=== PATIENT | female | born 2005 | race African-American/Black ===

== ENCOUNTER 2024-11-20 20:41 | Emergency (ER) | payer OTHER ==
[~2024-11-20] VITALS: Ht 165.1 cm; Wt 68.8 kg
[2024-11-20 20:43] VITALS: O2SAT 99
[2024-11-20] MEDS: TETANUS, DIPHTHERIA, PERTUSSIS VAC/PF 0.5ML (>10YR OLD) IM ONE (21:08)
[2024-11-20 21:31] VITALS: BP 114/71; PULSE 84; RESP 20; TEMP 36.8; O2SAT 100
== END 2024-11-20 21:34 | disposition home or self-care (01) ==
LOC: ER 20:41
DX: S61.216A Laceration without foreign body of right little finger without damage to nail, initial encounter (principal); X58.XXXA Exposure to other specified factors, initial encounter; Y93.89 Activity, other specified; Y92.89 Other specified places as the place of occurrence of the external cause; Y99.8 Other external cause status
CPT/HCPCS: 12001; 99282